=== PATIENT | male | born 1950 | race Caucasian/White ===

== ENCOUNTER 2017-11-13 14:15 | Emergency (ER) | payer MEDICARE ==
[~2017-11-13] VITALS: Ht 190.5 cm; Wt 91.6 kg
[2017-11-13 14:22] VITALS: BP 143/86
[2017-11-13] MEDS ORDERED: DIPH,PERTUSS(ACELL),TET VAC/PF 0.5 ML IM-VACC ONE (14:54)
[2017-11-13] MEDS ORDERED: DIPHTHERIA-TETANUS ADULT 0.5ML IM-VACC ONE (15:00)
[2017-11-13] MEDS ORDERED: LORazepam 2 MG/ML, 1ML ONE (15:03)
[2017-11-13] MEDS ORDERED: LIDOCAINE-MPF 1%, 5ML INFIL ONE (15:30)
[2017-11-13] MEDS ORDERED: BACITRACIN ZINC OINT 500U/GM, 0.9 GM ONE ×2 (15:51→17:01)
[2017-11-13] MEDS ORDERED: LIDOCAINE-MPF 1%, 5ML ONE (15:51)
== END 2017-11-13 17:11 | disposition home or self-care (01) ==
LOC: ED 15:00
DX: S61.511A Laceration without foreign body of right wrist, initial encounter (principal); W23.1XXA Caught, crushed, jammed, or pinched between stationary objects, initial encounter; Y93.89 Activity, other specified; Y99.8 Other external cause status; Y92.009 Unspecified place in unspecified non-institutional (private) residence as the place of occurrence of the external cause
CPT/HCPCS: 12032; 90471; 90714; 99285